=== PATIENT | male | born 1960 ===

== ENCOUNTER 2016-08-12 08:01 | Emergency (ER) | payer OTHER ==
[2016-08-12 08:11] VITALS: BP 118/78
--- NOTE | 2016-08-12 09:12 | UC ---
Fredo Garay Aidan, scribed for Denise Mejia DO on 08/12/16 at 0837 . Laceration HPI - HPI Summary HPI Summary: 55 y/o male presents to the Urgent Care with a complaint of an acute, constant, moderate laceration under his right eye that resulted from him falling and hitting his head on his head board at 3AM this morning. Just after the incident , the laceration bled for a while. He changed the dressing on the laceration just before coming in today, and it began bleeding again. Pt is unaware of when his last tetanus shot was. He denies any blurred vision, photophobia, problems with balance or coordination, brain fog, CP, SOB, fevers, chills, or any other symptoms. He did mention having a migraine, however, he typically gets migraines. - History Of Current Complaint Chief Complaint: UCLaceration Stated Complaint: LACERATION NEAR EYE Hx Obtained From: Patient Laceration Location: Face - just below the right eye Mechanism Of Injury: Blunt Trauma - Pt fell and cut his face on a head board Onset/Duration: Sudden Onset, Lasting Hours, Still Present Severity: Mild Pain Intensity: 0 - No pain currently Pain Scale Used: 0-10 Numeric Aggravating Factors: Other: - unknown - Allergies/Home Medications Allergies/Adverse Reactions: Allergies Allergy/AdvReac Type Severity Reaction Status Date / Time Penicillins Allergy Unknown Verified 01/26/16 13:18 Reaction Details PMH/Surg Hx/FS Hx/Imm Hx - Additional Past Medical History Additional PMH: [id number] Endocrine History Of: Denies: Diabetes, Thyroid Disease Cardiovascular History Of: Denies: Cardiac Disorders, Hypertension Respiratory History Of: Denies: COPD, Asthma GI/ History Of: Reports: Ulcer - Hx OF , 2013 HEALED WITH PO MEDS,, Kidney Stones - Hx OF, LAST WAS EARLY , PASSED WITHOUT SURGERY Neurological History Of: Reports: Migraine - Hx OF SEASONAL, USUALLY 2xMONTH - Surgical History Surgical History: Yes Surgery Procedure, Year, and Place: YOUNG CHILD T&A. NASAL SEPTUM SURGERY. RIGHT THUMB TIP, TRAUMA, REPAIRED - Family History Known Family History: Positive: Other - CMT - Social History Occupation: Employed Full-time Lives: Alone Alcohol Use: Rare Alcohol Amount: 1-2 DRINKS YEAR Substance Use Type: None Smoking Status (MU): Never Smoked Tobacco Have You Smoked in the Last Year: No Review of Systems Constitutional: Negative Skin: Other - laceration just below the right eye Eyes: Negative ENT: Negative Respiratory: Negative Cardiovascular: Negative Gastrointestinal: Negative Genitourinary: Negative Motor: Negative Neurovascular: Negative Musculoskeletal: Negative Neurological: Negative Psychological: Negative All Other Systems Reviewed And Are Negative: Yes Physical Exam Triage Information Reviewed: Yes Appearance: Well-Appearing, No Pain Distress, Well-Nourished Vital Signs: Initial Vital Signs Temp 98.0 F 08/12/16 08:06 Pulse 63 08/12/16 08:06 Resp 18 08/12/16 08:06 BP 118/78 08/12/16 08:06 Pulse Ox 100 08/12/16 08:06 Vital Signs Reviewed: Yes Eyes: Positive: Conjunctiva Clear. Negative: Discharge ENT: Positive: Hearing grossly normal. Negative: Muffled/hoarse voice Neck exam: Normal Neck: Positive: Supple Respiratory: Positive: Lungs clear, Normal breath sounds, No respiratory distress, No accessory muscle use Cardiovascular: Positive: RRR, No Murmur Musculoskeletal Exam: Normal Neurological: Positive: Alert, Muscle Tone Normal Psychological Exam: Normal Psychological: Positive: Age Appropriate Behavior Skin Exam: Normal, Other - 0.5 cm long, linear laceration under the right eye, wound edges stay well approximated, skin normal color, warm, and dry Laceration Repair - Laceration Repair 1 Description: Linear Laceration Size After Repair: Length (cm) - 0.5, Width (mm) - 1, Depth (mm) - 1 Modified For Repair: No Cleansing Completed Via Routine Prep: Yes Irrigation With Pressure Irrigation Device: Yes Closure Material: Skin Adhesive, SteriStrips Closure Method: Single Layer Laceration Course/Dx - Course/Dx Course Of Treatment: This is a 55 y/o male who presents with a 0.5 cm long, linear laceration under the right eye. Wound edges stay well approximated. He is unsure as to whether or not he has had a tetanus shot within the past 5 years. - Differential Dx - Laceration/Wound Differental Diagnoses: Abrasion, Laceration Provider Diagnoses: facial lac Discharge - Discharge Plan Condition: Stable Disposition: HOME Patient Education Materials: Facial Laceration (ED), Skin Adhesive Care (ED), Steristrips (ED) Referrals: Leroy Landers MD [Primary Care Provider] - If Needed The documentation as recorded by the Fredo martin Aidan accurately reflects the service I personally performed and the decisions made by me, Denise Mejia DO.
== END 2016-08-12 09:25 | disposition home or self-care (01) ==
LOC: UCEAST 08:01
DX: S01.81XA Laceration without foreign body of other part of head, initial encounter (principal); W20.8XXA Other cause of strike by thrown, projected or falling object, initial encounter; Y92.9 Unspecified place or not applicable; Z88.0 Allergy status to penicillin
CPT/HCPCS: 12001; 12011; 99211; 99212; G0463